=== PATIENT | male | born 1965 | race Caucasian/White ===

== ENCOUNTER 2019-04-11 11:22 | Inpatient (IN) ==
--- NOTE | 2019-04-11 11:49 | PDOC ---
Dyspnea HPI - General Chief Complaint: Dyspnea Stated Complaint: SHORT OF BREATH Date Seen by Provider: 04/11/19 Time Seen by Provider: 11:44 Source: POSITIVE: Patient, EMS Exam Limitations: POSITIVE: No limitations Treatment Prior to Arrival: REPORTS: Albuterol Neb Treatment Nurse's Notes Reviewed & Considered: Yes - History of Present Illness Initial Comments: This is a well-developed, well-nourished, 54-year-old male with known ALL who presents today with shortness of breath. Patient was directed here from his doctor's office because of coarse rhonchi and shortness of breath. Patient has had headaches, sore throat, fever chills and sweats, cough, shortness of breath with chest pain, denies nausea vomiting, has chronic diarrhea, denies hematuria or dysuria, he does have myalgias. Body Location Affected: REPORTS: Chest Timing: REPORTS: Unknown Duration: Unknown Severity: Moderate Context: REPORTS: Activity Exacerbated By: REPORTS: Exertion, Coughing Associated Symptoms: REPORTS: Fever, Chills, Sweating, Chest Heaviness, Productive Cough Similar Symptoms Previously: Yes Recently seen/treated/hospitalized: Yes Any Prior Injuries Related to Current Complaint?: No - Patient Home Medications Home Medications: Home Medications aspirin 81 mg tablet,delayed release 81 mg PO QDAY #30 tab 10/27/18 albuterol sulfate HFA 90 mcg/actuation aerosol inhaler 2 puff INH Q4-6H PRN #18 g 02/09/19 amlodipine 10 mg tablet 10 mg PO QDAY #90 tab 02/09/19 carvedilol 12.5 mg tablet 12.5 mg PO BID #180 tab 02/09/19 dasatinib 20 mg tablet 20 mg PO QDAY tab 02/09/19 lisinopril 5 mg tablet 5 mg PO QDAY #90 tab 02/09/19 ondansetron 4 mg disintegrating tablet 4 mg PO Q12H #30 tab 02/09/19 fluoxetine 20 mg capsule 60 mg PO QDAY cap 02/28/19 simvastatin 10 mg tablet 10 mg PO QHS tab 02/28/19 tamsulosin 0.4 mg capsule 0.4 mg PO QHS cap 02/28/19 cholecalciferol (vitamin D3) 1,000 unit capsule 1,000 unit PO QDAY #30 cap 03/16/19 vitamin B complex tablet 1 tab PO QDAY #30 tab 03/16/19 ipratropium-albuterol 0.5 mg-3 mg(2.5 mg base)/3 mL nebulization soln 3 ml INH Q6-8H PRN #180 ml 03/19/19 tiotropium bromide 2.5 mcg/actuation mist for inhalation 2 puff INH QDAY #4 g 03/20/19 sucralfate 1 gram tablet 1 g PO BID #180 tab 04/09/19 RX: Guaifenesin 400 mg PO BID 04/11/19 - Patient Allergies Allergies/Adverse Reactions: Allergies Allergy/AdvReac Type Severity Reaction Status Date / Time No Known Allergies Allergy Verified 04/11/19 11:51 Past Medical History - heen HEENT History: Denies History Cardiovascular History: Hypertension, CAD, Pacemaker, Internal Defibrillator Respiratory History: COPD, Shortness of Breath, Other (please comment) Additional Respiratory History: hypoxia Gastrointestinal History: GERD Additional Gastrointestinal History: GI BLEED Genitourinary History: Denies History Endocrine History: Denies History Musculoskeletal History: Denies History Prosthesis or Implant: Yes (Shunt in head/pacemaker) Neurological History: Other (please comment) Additional Neurological History: SHUNT IN HIS HEAD. Restless leg syndrome Blood Disorders: Anemia, Other (please comment) Additional Blood Disorders History: LEUKEMIA Psychiatric History: Anxiety Disorders History of Sexually Transmitted Diseases: No Cancer History: Leukemia History of MDRO: No History of Other Communicable Diseases: No In the Past 12 Months, Have Used or Abuse Any Substance: None Previous Surgical History: Yes Type / Date of Surgery: APPY,PACEMAKER/DEFEBRILLATOR/SHUNT IN HEAD with port placement Anesthesia Reactions: No Malignant Hyperthermia: No Significant Family History: No pertinent family hx ROS - Limitations ROS Limitations: No Limitations Constitution: REPORTS: Chills, Fever, Diaphoresis Cardiovascular: REPORTS: Chest Pain Respiratory: REPORTS: Cough Productive, Hurts To Breathe, Shortness Of Breath, Wheezing Neurological: REPORTS: Headache Gastrointestinal: REPORTS: Diarrhea (Chronic) Endocrine: REPORTS: Denies Symptoms Musculoskeletal: REPORTS: Muscle Aches Genitourinary: REPORTS: Denies Symptoms Eyes: REPORTS: Denies Symptoms ENT: REPORTS: Sore Throat Skin: REPORTS: Denies Skin Symptoms Lympathic: REPORTS: Denies Lympathic Symptoms Immunologic: POSITIVE: Denies Symptoms Psychiatric: POSITIVE: Anxiety Dyspnea Physical Exam - General Appearance General Appearance: REPORTS: Alert, Cooperative, No Evidence of Trauma, Moderate Distress - HEENT HEENT: POSITIVE: Head Inspection Nml, Eyes Inspection Nml, Ears Inspection Nml, Nose Inspection Nml, Oral/Dental Inspect. Nml, Pharynx Inspect. Nml, PERRL, EOMI - Neck Neck: REPORTS: Normal Inspection - Respiratory Respiratory: REPORTS: No Pleuritic Chest Pain, Speaks Full Sentences, No Pain on Inspiration, Respiratory Distress, Rhonchi, Prolonged Expirations, Decreased Air Movement - Cardiovascular Cardiovascular: REPORTS: Regular Rate and Rhythm, Heart Sounds Normal, Strong Pulses, No Murmur, No Gallop, No Friction Rub, No JVD Peripheral Pulses: Radial (L): 4+ - Abdomen Abdomen: Soft: (All Quadrants), Normal Bowel Sounds: (All Quadrants), Denies Tenderness: (All Quadrants), No Splenomegaly: (All Quadrants), No Hepatomegaly: (All Quadrants), No Guarding: (All Quadrants), No Rebound: (All Quadrants), No Palpable Pulse: (All Quadrants), No Palpabale Mass: (All Quadrants), No Distention: (All Quadrants), No Rigidity: (All Quadrants) - Skin Skin: REPORTS: Intact, Normal For Race, Warm, Dry, No Rash - Extremities Extremity: Non-Tender: (All Extremities), Normal ROM: (All Extremities), Normal Inspection: (All Extremities), Pelvis Stable: (All Extremities) - Neurological / Psychological Neurological: POSITIVE: Affect Apporpriate, Oriented X3, Motor Normal, Sensation Normal Dyspnea Progress - Results Reviewed by me Xrays/CTs/US Reviewed by me: Yes Discussed with Radiologist: Yes Lab Results Reviewed by Me: Yes CBC and BMP: 04/11/19 11:20 04/11/19 11:20 Lab Results:: Laboratory Results 04/11/19 04/11/19 04/11/19 11:20 11:20 11:20 WBC 9.86 RBC 2.98 L Hgb 9.8 L Hct 29.1 L MCV 97.7 H MCH 32.9 H MCHC 33.7 RDW Std Deviation 63.8 H RDW Coeff of Susanne 18.6 H Plt Count 136 L MPV 8.5 Immature Gran % (Auto) 0.4 Neut % (Auto) 34.6 L Lymph % (Auto) 63.6 H Martin % (Auto) 0.5 L Eos % (Auto) 0.8 Baso % (Auto) 0.1 Immature Gran # (Auto) 0.04 Neut # (Auto) 3.41 Lymph # (Auto) 6.27 Martin # (Auto) 0.05 L Eos # (Auto) 0.08 Baso # (Auto) 0.01 WBC Morphology Comment Normal morphology Plt Morphology Comment Normal morphology RBC Morph Comment See comments ESR 58 H PT 12.4 INR 1.08 D-Dimer 567 H VBG pH VBG pCO2 VBG HCO3 VBG Base Excess Sodium 139 Potassium 3.7 L Chloride 107 Carbon Dioxide 16 L Anion Gap 16 BUN 15 Creatinine 1.1 Estimated GFR > 60 BUN/Creatinine Ratio 13.63 Glucose 91 Calculated Osmolality 288.0 Lactic Acid Calcium 8.3 L Magnesium 2.0 Total Bilirubin 0.3 AST 29 ALT 28 Alkaline Phosphatase 75 CK-MB (CK-2) Troponin I Handheld C-Reactive Protein 7.6 H NT-Pro-B Natriuret Pep 1220 H Total Protein 6.9 Albumin 4.0 Globulin 2.9 Albumin/Globulin Ratio 1.30 TSH Group A Strep Screen 04/11/19 04/11/19 04/11/19 11:20 11:20 11:20 WBC RBC Hgb Hct MCV MCH MCHC RDW Std Deviation RDW Coeff of Susanne Plt Count MPV Immature Gran % (Auto) Neut % (Auto) Lymph % (Auto) Martin % (Auto) Eos % (Auto) Baso % (Auto) Immature Gran # (Auto) Neut # (Auto) Lymph # (Auto) Martin # (Auto) Eos # (Auto) Baso # (Auto) WBC Morphology Comment Plt Morphology Comment RBC Morph Comment ESR PT INR D-Dimer VBG pH VBG pCO2 VBG HCO3 VBG Base Excess Sodium Potassium Chloride Carbon Dioxide Anion Gap BUN Creatinine Estimated GFR BUN/Creatinine Ratio Glucose Calculated Osmolality Lactic Acid 0.7 Calcium Magnesium Total Bilirubin AST ALT Alkaline Phosphatase CK-MB (CK-2) 1.05 Troponin I Handheld 0.020 C-Reactive Protein NT-Pro-B Natriuret Pep Total Protein Albumin Globulin Albumin/Globulin Ratio TSH 3.37 Group A Strep Screen 04/11/19 04/11/19 11:41 12:15 WBC RBC Hgb Hct MCV MCH MCHC RDW Std Deviation RDW Coeff of Susanne Plt Count MPV Immature Gran % (Auto) Neut % (Auto) Lymph % (Auto) Martin % (Auto) Eos % (Auto) Baso % (Auto) Immature Gran # (Auto) Neut # (Auto) Lymph # (Auto) Martin # (Auto) Eos # (Auto) Baso # (Auto) WBC Morphology Comment Plt Morphology Comment RBC Morph Comment ESR PT INR D-Dimer VBG pH 7.44 H VBG pCO2 24 L VBG HCO3 16 L VBG Base Excess -8 L Sodium Potassium Chloride Carbon Dioxide Anion Gap BUN Creatinine Estimated GFR BUN/Creatinine Ratio Glucose Calculated Osmolality Lactic Acid Calcium Magnesium Total Bilirubin AST ALT Alkaline Phosphatase CK-MB (CK-2) Troponin I Handheld C-Reactive Protein NT-Pro-B Natriuret Pep Total Protein Albumin Globulin Albumin/Globulin Ratio TSH Group A Strep Screen Negative - Patient's Progress Status: POSITIVE: Unchanged MDM / ED Course: Patient was evaluated, an IV started, blood drawn and sent to the lab for studies, CT examination of his chest was obtained. Findings: CT scan of his chest shows no pulmonary embolism present, multifocal airspace disease is noted with left worse than the right, there is cardiomegaly, there is bronchitis, and there is evidence of pulmonary arterial hypertension. CBC shows white count is normal with a hemoglobin of 9.8 hematocrit of 29.1, platelets 136, neutrophils are 34.6% lymphocytes are 63.6% and monocytes are 0.5%. ESR is 58. Coags show PT of 12.4 and INR 1.08. D-dimer is elevated at 567. CMP shows a potassium of 3.7, CO2 of 16, calcium of 8.3, the remainder the panel was normal. Magnesium is normal at 2.0. Lactic acid is normal at 0.7. Blood gases show pH is 7.44, PCO2 of 24, bicarbonate 16, base excess is -8. CK- MB is 1.05 and troponin 0.020. CRP is elevated at 7.6. BNP is elevated at 1220. TSH is normal at 3.37. Strep swab is negative. By fire respiratory panel is positive for Rhino and enterovirus, positive for H influenza, and positive for parainfluenza. Assessment: #1 hypoxia. #2 pneumonia. #3 multiple viral infections. Plan: Patient receives IV cefepime and vancomycin and is admitted to the hospitalist program. Air Movement: POSITIVE: Poor Quality Measure Initiative: CAP: POSITIVE: Antibiotic(s), CXR or CT - Consult Consult (If Yes, Name of Consulting MD & Time Called): Yes (Dr. Brandon) Consulting MD will see pt:: POSITIVE: [facility] [place] Admit Counseled: POSITIVE: Patient, Family, RE: Lab Results, RE: Radiology Results, RE: DX, RE: Need for F/U Patient Care Time - Estimated PCT Patient Care Time (In Minutes): 45 Vital Signs - Recent Vital Signs Vital Signs: Vital Signs (Last 8 hours) Pulse Resp BP Pulse Ox 04/11/19 15:59 71 20 101/81 92 - VS Reviewed Vital Signs Reviewed: Yes Discharge Clinical Impression: Pneumonia Discharge Disposition: Admit to Inpatient Condition: Fair Date Decision to Admit to Inpatient: 04/11/19 Time Decision to Admit to Inpatient: 15:09
[2019-04-11] MEDS ORDERED: ONDANSETRON 4 MG/2 ML VIAL IVP ONE (11:52)
[2019-04-11] MEDS ORDERED: Sodium Chloride 0.9% 1,000 ML PRIMARY IV ONE (11:52)
[2019-04-11] MEDS ORDERED: KETOROLAC 15 MG/1 ML VIAL IVP ONE (11:52)
[2019-04-11] MEDS ORDERED: LORazepam 2 MG/1 ML VIAL IVP ONE (11:53)
[2019-04-11 11:59] LABS: BASOPHILS # (AUTO) 0.01 10*3/UL; BASOPHILS % (AUTO) 0.1 % (0-1); EOSINOPHILS # (AUTO) 0.08 10*3/UL; EOSINOPHILS % (AUTO) 0.8 % (0-8); Hematocrit [HCT] 29.1 % (42.0-52.0); Hemoglobin [HGB] 9.8 g/dL (14.0-18.0); LYMPHOCYTES # (AUTO) 6.27 10*3/uL; MEAN CORPUSCULAR HEMOGLOBIN 32.9 PG (27-31); MEAN CORPUSCULAR HGB CONC 33.7 g/dL (33-37); MEAN CORPUSCULAR VOLUME 97.7 FL (80-90); MEAN PLATELET VOLUME 8.5 FL (7.4-12.2); MONOCYTES # (AUTO) 0.05 10*3/UL (0.3-0.8); MONOCYTES % (AUTO) 0.5 % (5-15); NEUTROPHILS # (AUTO) 3.41 10*3/UL; NEUTROPHILS % (AUTO) 34.6 % (50-80); RED BLOOD COUNT 2.98 10^6/uL (4.70-6.10)
[2019-04-11] MEDS ORDERED: IPRATROPIUM/ALBUTEROL SULFATE 3 ML NEB NEB ONE ×2 (12:01→12:02)
[2019-04-11 12:09] LABS: PLATELET MORPHOLOGY COMMENT NORMAL MORPHOLOGY (NORM); RBC MORPHOLOGY COMMENT SEE COMMENTS (NORM); WBC MORPHOLOGY COMMENT NORMAL MORPHOLOGY (NORM)
[2019-04-11 12:10] LABS: BLOOD UREA NITROGEN 15 mg/dL (7-22); BUN/CREATININE RATIO 13.63 (6-20)
[2019-04-11 12:46] LABS: Erythrocyte Sediment Rate 58 MM/HR (0-15)
[2019-04-11 13:49] LABS: VENOUS PH 7.44 (7.32-7.42)
--- NOTE | 2019-04-11 14:48 | DI ---
CT CTA Chest Non-Coronary WWO 04/11/2019 12:59 PM History: [facility] [place] DI ^sob Comparison: Chest x-ray from earlier the same day. CTA PE 09/30/2018, 09/14/2018. Procedure: CT angiography of the pulmonary arteries was performed after the administration of 64 mL o f Ultravist 370 intravenous contrast. Findings: There is a right chest Port-A-Cath with the tip in the distal SVC. There is a 2-lead left c hest cardiac device with wire tips in the right atrium and right ventricle. There is normal opacification of the main and proximal segmental pulmonary arteries with no evidence of filling defect. Contrast bolus timing is suboptimal for the visualization of more distal emboli. E valuation of the lungs demonstrates early consolidation in the left lower lobe. Tree in bud opacities are noted in the left upper, lingular, and left lower lobes. There is mild diffuse bronchial wall th ickening. There is no mediastinal or hilar lymphadenopathy. The aorta and branch vessels demonstrate normal cou rse and caliber. The main pulmonary artery is dilated at 3.3 cm. Heart size is enlarged with mild per icardial effusion. There are atheromatous aortic and coronary artery calcifications. The thyroid exhi bits normal CT morphology. The visualized upper abdominal structures are unremarkable. The osseous structures are not significantly changed. There is no evidence of acute or healing rib fr actures. There is moderate bilateral gynecomastia. Impression: 1. No main or proximal segmental pulmonary embolism. Contrast bolus timing is suboptimal for the eval uation of more distal emboli. 2. Multifocal airspace disease. Repeat imaging is recommended 6 weeks following completion of therapy in order to ensure resolution. 3. Cardiomegaly with mild pericardial effusion. 4. There is diffuse bronchial wall thickening without endobronchial lesion. This is a non-specific fi nding that is most commonly seen in the setting of acute or chronic bronchitis, as well as reactive a irways disease. 5. The main pulmonary artery is dilated, a finding associated with pulmonary artery hypertension.
[2019-04-11] MEDS ORDERED: LIDOCAINE 1% IM ONE (15:06)
[2019-04-11] MEDS ORDERED: CEFTRIAXONE IM ONE (15:06)
[2019-04-11] MEDS ORDERED: cefTRIAXone Inj 2 GM in Sodium Chloride 0.9% 100 ML IV ONE (15:29)
[2019-04-11] MEDS ORDERED: Cefepime Inj 2 GM in Sodium Chloride 0.9% 100 ML IV ONE (15:34)
[2019-04-11] MEDS ORDERED: LISINOPRIL 5 MG TABLET PO SCH (16:44)
[2019-04-11] MEDS ORDERED: ASPIRIN EC 81 MG TABLET PO SCH (16:44)
[2019-04-11] MEDS ORDERED: Vancomycin-PHA to Dose IV PRN (16:44)
[2019-04-11] MEDS ORDERED: LIDOCAINE W/ SODIUM BICARB 0.5 ML SYR SUBD PRN (16:44)
[2019-04-11] MEDS ORDERED: ONDANSETRON 4 MG/2 ML VIAL IV PRN (16:44)
[2019-04-11] MEDS ORDERED: FLUoxetine 20 MG CAPSULE PO SCH (17:00)
[2019-04-11] MEDS: FLUoxetine 20 MG CAPSULE PO SCH (18:53)
[2019-04-11] MEDS: Sucralfate Tab 1 GM TAB PO SCH (18:54)
[2019-04-11] MEDS: Simvastatin Tab 10 MG TAB PO SCH (18:54)
[2019-04-11] MEDS: CARVEDILOL 12.5 MG TABLET PO SCH (18:54)
[2019-04-11] MEDS: GUAIFENESIN 600 MG TABLET PO SCH (18:54)
--- NOTE | 2019-04-11 19:10 | PDOC ---
HPI - History of Present Illness Date of Service: 04/11/19 Time of Service: 17:00 Chief Complaint: Cough and shortness of breath History of Present Illness: This is a very pleasant 54-year-old male with ALL with recurrence on active chemotherapy who reported along with his [id number], that he had a cough and shortness of breath for the last 3 days. He had fevers as high as 100 over the last couple days. He's been using Mucinex, decongestants and breathing therapies to try and make his symptoms better. He saw his primary physician and his oncologist today and at their urging he came to the emergency room for further evaluation. He apparently had a chest x-ray that may have revealed pneumonia on the outpatient side. In the emergency room, the patient had a CT scan of the chest was negative for pulmonary emboli resulted in the findings of a left lower lobe pneumonia. He had a respiratory biofire profile that noted three different viruses. He states to me that he's had cough with sputum production as well. He is normally not on oxygen but required 3 L of oxygen to maintain his saturations Past Medical History Medical History: 1. ALL. 2. GERD. 3. HTN. 4. reportedly, COPD. 5. Restless leg syndrome. 6. atrial fibrillation Surgical History: 1. Right upper chest port. 2. Status post appendectomy. 3. Pacemaker with AICD per the patient Pertinent Family History: He states his mother gets "blackout spells" Past Social History: , has children that are healthy. Does not smoke tobacco or drink alcohol at this time. Tobacco Use: Never Smoker In the Past 12 Months, Have Used or Abuse Any of the Following Substance: None Alcohol Use: None Medication / Allergies Home Medications: Home Medications Medication Instructions Recorded Confirmed aspirin 81 mg tablet,delayed 81 mg PO QDAY #30 tab 10/27/18 04/11/19 release albuterol sulfate HFA 90 2 puff INH Q4-6H PRN #18 g 02/09/19 04/11/19 mcg/actuation aerosol inhaler amlodipine 10 mg tablet 10 mg PO QDAY #90 tab 02/09/19 04/11/19 carvedilol 12.5 mg tablet 12.5 mg PO BID #180 tab 02/09/19 04/11/19 dasatinib 20 mg tablet 20 mg PO QDAY tab 02/09/19 04/11/19 lisinopril 5 mg tablet 5 mg PO QDAY #90 tab 02/09/19 04/11/19 ondansetron 4 mg disintegrating 4 mg PO Q12H #30 tab 02/09/19 04/11/19 tablet fluoxetine 20 mg capsule 60 mg PO QDAY cap 02/28/19 04/11/19 simvastatin 10 mg tablet 10 mg PO QHS tab 02/28/19 04/11/19 tamsulosin 0.4 mg capsule 0.4 mg PO QHS cap 02/28/19 04/11/19 cholecalciferol (vitamin D3) 1,000 1,000 unit PO QDAY #30 cap 03/16/19 04/11/19 unit capsule vitamin B complex tablet 1 tab PO QDAY #30 tab 03/16/19 04/11/19 ipratropium-albuterol 0.5 mg-3 3 ml INH Q6-8H PRN #180 ml 03/19/19 04/11/19 mg(2.5 mg base)/3 mL nebulization soln tiotropium bromide 2.5 2 puff INH QDAY #4 g 03/20/19 04/11/19 mcg/actuation mist for inhalation sucralfate 1 gram tablet 1 g PO BID #180 tab 04/09/19 04/11/19 Guaifenesin 400 mg PO BID 04/11/19 04/11/19 Allergies/Adverse Reactions: Allergies Allergy/AdvReac Type Severity Reaction Status Date / Time No Known Allergies Allergy Verified 04/11/19 11:51 Review of Systems - Review of Systems All Systems: Reviewed & No Additional Complaints Except as Stated (I did a 12 point review systems and it was negative other than that discussed below and in the history of present illness.) - Constitutional Constitutional: REPORTS: General Health Poor, Fever / Chills - Respiratory Respiratory: REPORTS: Cough, Sputum - Neurological Neurologic: REPORTS: Headache Exam - Vitals Vital Signs: Vital Signs Temperature 98.9 F Temperature Source Temporal Artery Scan Pulse Rate [Pulse Oximeter 133 Right] Pulse Rate 68 Respiratory Rate 24 Blood Pressure [Right Arm] 102/57 Blood Pressure [Left Arm] 101/81 Blood Pressure 103/51 Pulse Ox 92 Oxygen Flow Rate 2.5 Oxygen Delivery Method Nasal Cannula Height 5 ft 8 in Weight 216 lb 12.8 oz - General General Appearance: No Acute Distress, Cooperative - Head Head Exam: Normal Inspection, Normocephalic, Atraumatic - Eye Eye Exam: POSITIVE: No Scleral Icterus - ENT ENT Exam: POSITIVE: Mucous Membranes Moist - Neck Neck Exam: Normal Inspection, No Tenderness, No Lymphadenopathy, No Thyromegaly, JVP is not Raised - Respiratory Respiratory Exam: POSITIVE: Breathing Non Labored, Decreased Breath Sounds (In the bases bilaterally), Coarse Breath Sounds - Cardiovascular Cardiovascular Exam: POSITIVE: RRR, No Murmur, No Clicks, No Gallops, No Rubs, No JVD - GI/Abdominal GI/Abdominal Exam: POSITIVE: Normal Bowel Sounds, Non Tender, Non Distended, Soft - Rectal Rectal Exam: POSITIVE: Deferred - External Exam: POSITIVE: Deferred Exam: POSITIVE: Deferred - Extremities Extremities Exam: POSITIVE: No Clubbing Present, No Edema Present, No Cyanosis Present - Back Back Exam: POSITIVE: No CVA Tenderness - Neurological Neurological Exam: POSITIVE: Alert, Oriented x 3, No Facial Droop, Speech Intact / Clear, Moves All Extremities Equally - Psychiatric Psychiatric Exam: POSITIVE: Anxious - Central Line Examination Central Line Present on Admission: Yes Central Line Type: Med-Port Central Line Location: Subclavian (L) Central Line Site Observations: POSITIVE: Asymptomatic Results - Labs CBC and BMP: 04/11/19 11:20 04/11/19 11:20 Additional Lab Results: Laboratory Results 04/11/19 04/11/19 04/11/19 11:20 11:20 11:20 WBC 9.86 RBC 2.98 L Hgb 9.8 L Hct 29.1 L MCV 97.7 H MCH 32.9 H MCHC 33.7 RDW Std Deviation 63.8 H RDW Coeff of Susanne 18.6 H Plt Count 136 L MPV 8.5 Immature Gran % (Auto) 0.4 Neut % (Auto) 34.6 L Lymph % (Auto) 63.6 H Wells % (Auto) 0.5 L Eos % (Auto) 0.8 Baso % (Auto) 0.1 Immature Gran # (Auto) 0.04 Neut # (Auto) 3.41 Lymph # (Auto) 6.27 Wells # (Auto) 0.05 L Eos # (Auto) 0.08 Baso # (Auto) 0.01 WBC Morphology Comment Normal morphology Plt Morphology Comment Normal morphology RBC Morph Comment See comments ESR 58 H PT 12.4 INR 1.08 D-Dimer 567 H VBG pH VBG pCO2 VBG HCO3 VBG Base Excess Sodium 139 Potassium 3.7 L Chloride 107 Carbon Dioxide 16 L Anion Gap 16 BUN 15 Creatinine 1.1 Estimated GFR > 60 BUN/Creatinine Ratio 13.63 Glucose 91 Calculated Osmolality 288.0 Lactic Acid Calcium 8.3 L Magnesium 2.0 Total Bilirubin 0.3 AST 29 ALT 28 Alkaline Phosphatase 75 CK-MB (CK-2) Troponin I Handheld C-Reactive Protein 7.6 H NT-Pro-B Natriuret Pep 1220 H Total Protein 6.9 Albumin 4.0 Globulin 2.9 Albumin/Globulin Ratio 1.30 TSH Group A Strep Screen 04/11/19 04/11/19 04/11/19 11:20 11:20 11:20 WBC RBC Hgb Hct MCV MCH MCHC RDW Std Deviation RDW Coeff of Susanne Plt Count MPV Immature Gran % (Auto) Neut % (Auto) Lymph % (Auto) Wells % (Auto) Eos % (Auto) Baso % (Auto) Immature Gran # (Auto) Neut # (Auto) Lymph # (Auto) Wells # (Auto) Eos # (Auto) Baso # (Auto) WBC Morphology Comment Plt Morphology Comment RBC Morph Comment ESR PT INR D-Dimer VBG pH VBG pCO2 VBG HCO3 VBG Base Excess Sodium Potassium Chloride Carbon Dioxide Anion Gap BUN Creatinine Estimated GFR BUN/Creatinine Ratio Glucose Calculated Osmolality Lactic Acid 0.7 Calcium Magnesium Total Bilirubin AST ALT Alkaline Phosphatase CK-MB (CK-2) 1.05 Troponin I Handheld 0.020 C-Reactive Protein NT-Pro-B Natriuret Pep Total Protein Albumin Globulin Albumin/Globulin Ratio TSH 3.37 Group A Strep Screen 04/11/19 04/11/19 04/11/19 11:41 12:15 17:35 WBC RBC Hgb Hct MCV MCH MCHC RDW Std Deviation RDW Coeff of Susanne Plt Count MPV Immature Gran % (Auto) Neut % (Auto) Lymph % (Auto) Wells % (Auto) Eos % (Auto) Baso % (Auto) Immature Gran # (Auto) Neut # (Auto) Lymph # (Auto) Wells # (Auto) Eos # (Auto) Baso # (Auto) WBC Morphology Comment Plt Morphology Comment RBC Morph Comment ESR PT INR D-Dimer VBG pH 7.44 H VBG pCO2 24 L VBG HCO3 16 L VBG Base Excess -8 L Sodium Potassium Chloride Carbon Dioxide Anion Gap BUN Creatinine Estimated GFR BUN/Creatinine Ratio Glucose Calculated Osmolality Lactic Acid 0.8 Calcium Magnesium Total Bilirubin AST ALT Alkaline Phosphatase CK-MB (CK-2) Troponin I Handheld C-Reactive Protein NT-Pro-B Natriuret Pep Total Protein Albumin Globulin Albumin/Globulin Ratio TSH Group A Strep Screen Negative - Imaging Status: Image Reviewed by Me (I looked at the CT scan of the chest and I felt it was significant for left lower lobe pneumonia. 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 Active/Remission status: without remission Qualified Code(s): C91.00 - Acute lymphoblastic leukemia not having achieved remission (3) Atrial fibrillation Current Visit: Yes Status: Acute Code(s): I48.91 - Unspecified atrial fibrillation Qualifiers: Atrial fibrillation type: unspecified Qualified Code(s): I48.91 - Unspecified atrial fibrillation (4) Pacemaker Current Visit: Yes Status: Chronic Code(s): Z95.0 - Presence of cardiac pacemaker (5) Restless legs syndrome Current Visit: No Status: Chronic Code(s): G25.81 - Restless legs syndrome (6) Gastroesophageal reflux disease Current Visit: Yes Status: Chronic Code(s): K21.9 - Gastro-esophageal reflux disease without esophagitis Qualifiers: Esophagitis presence: esophagitis presence not specified Qualified Code(s): K21.9 - Gastro-esophageal reflux disease without esophagitis - Assessment / Plan Additional Assessment/Plan Details: Admit patient. Antibiotics will be given IV cefepime and vancomycin as I think this is patient admitting representative of a healthcare associated pneumonia given his immunocompromised status and active chemotherapy I will write for some breathing therapies including nebulized therapies if necessary. Oxygen as necessary to keep saturations greater than 91%. Respiratory therapy to evaluate. Vitamin C by mouth. We'll check a urinary antigen for strep pneumoniae. vaccine status reviewed has not had Pneumovax, but I think the timing of it may not be best considering his active chemotherapy status. In addition I'd like him to recover from this pneumonia so that if he does have the vaccine he can have the maximum response to it. PSI score is 96 . Class IV pneumonia CURB-65 is 0 smoking status negative, Repeat labs in a.m. Blood cultures are pending. Telemetry monitoring for now. We need to watch the patient on broad-spectrum antibiotics in my mind for at l east the next 24-48 hours and we can de-escalate depending on the patient's clinical response and a workup done above. I will also hold chemotherapy agent for now. Adverse reaction of his chemotherapy agent, dasatinib, can cause pneumonias. I will try to talk to his oncologist tomorrow regarding this possibility. Plan above discussed with patient and patient agreed
[2019-04-11] MEDS ORDERED: POTASSIUM CHLORIDE 20 MEQ TAB PO ONE (19:14)
[2019-04-11] MEDS: Zolpidem Tab 5 MG TAB PO PRN (20:37)
[2019-04-11] MEDS ORDERED: TAMSULOSIN 0.4 MG CAPSULE PO SCH (21:00)
[2019-04-11] MEDS ORDERED: Simvastatin Tab 10 MG TAB PO SCH (21:00)
[2019-04-11] MEDS ORDERED: Sucralfate Tab 1 GM TAB PO SCH (21:00)
[2019-04-11] MEDS ORDERED: CARVEDILOL 12.5 MG TABLET PO SCH (21:00)
[2019-04-11] MEDS ORDERED: GUAIFENESIN 600 MG TABLET PO SCH (21:00)
[2019-04-11] MEDS: Sodium Chloride 0.9% 1,000 ML PRIMARY IV SCH (23:40)
[2019-04-11] MEDS: Cefepime Inj 2 GM in Sodium Chloride 0.9% 100 ML IV SCH (23:40)
[2019-04-12 04:48] LABS: BASOPHILS # (AUTO) 0 10*3/UL; BASOPHILS % (AUTO) 0 % (0-1); EOSINOPHILS # (AUTO) 0.02 10*3/UL; EOSINOPHILS % (AUTO) 0.6 % (0-8); Hematocrit [HCT] 25.2 % (42.0-52.0); LYMPHOCYTES # (AUTO) 1.57 10*3/uL; MEAN CORPUSCULAR HEMOGLOBIN 31.7 PG (27-31); MEAN CORPUSCULAR HGB CONC 31.7 g/dL (33-37); MEAN PLATELET VOLUME 7.9 FL (7.4-12.2); MONOCYTES # (AUTO) 0.03 10*3/UL (0.3-0.8); MONOCYTES % (AUTO) 0.9 % (5-15); NEUTROPHILS # (AUTO) 1.87 10*3/UL; NEUTROPHILS % (AUTO) 53.5 % (50-80); RED BLOOD COUNT 2.52 10^6/uL (4.70-6.10)
[2019-04-12 04:51] LABS: PLATELET MORPHOLOGY COMMENT NORMAL MORPHOLOGY (NORM); RBC MORPHOLOGY COMMENT NORMAL MORPHOLOGY (NORM); WBC MORPHOLOGY COMMENT NORMAL MORPHOLOGY (NORM)
[2019-04-12 04:57] LABS: BLOOD UREA NITROGEN 16 mg/dL (7-22); BUN/CREATININE RATIO 14.54 (6-20)
[2019-04-12] MEDS: ALBUTEROL SULFATE 2.5 MG/3 ML NEB PRN (06:34)
[2019-04-12] MEDS: TIOTROPIUM BROMIDE 18 MCG CAPSULE INH SCH (06:35)
[2019-04-12] MEDS: CHOLECALCIFEROL 1000 IU TABLET PO SCH (06:55)
[2019-04-12] MEDS ORDERED: TIOTROPIUM BROMIDE 18 MCG CAPSULE INH SCH (07:00)
[2019-04-12] MEDS: Sucralfate Tab 1 GM TAB PO SCH ×2 (07:29→19:27)
[2019-04-12] MEDS: TAMSULOSIN 0.4 MG CAPSULE PO SCH (07:29)
[2019-04-12] MEDS: LISINOPRIL 5 MG TABLET PO SCH (07:30)
[2019-04-12] MEDS: CARVEDILOL 12.5 MG TABLET PO SCH ×2 (07:30→19:27)
[2019-04-12] MEDS: GUAIFENESIN 600 MG TABLET PO SCH ×2 (07:30→19:27)
[2019-04-12] MEDS: Sodium Chloride 0.9% 1,000 ML PRIMARY IV SCH (07:48)
[2019-04-12] MEDS: ASPIRIN EC 81 MG TABLET PO SCH (07:50)
--- NOTE | 2019-04-12 08:29 | EKG ---
[address] [address] [address] [place] Rate: 73 P: 69 DC: 158 QRS: 17 QRSD: 100 T: 17 QT: 413 QTc: 439 Interpretive Statements SINUS RHYTHM WITH WANDERING BASELINE AND ELECTRICAL INTERFERENCE Compared to ECG 10/17/2018 17:52:03 T-wave abnormality no longer present Electronically Signed On 04-12-19 10:09:04 MDT by Dung Murphy [id number]
[2019-04-12] MEDS ORDERED: CHOLECALCIFEROL 1000 IU TABLET PO SCH (09:00)
[2019-04-12] MEDS: Cefepime Inj 2 GM in Sodium Chloride 0.9% 100 ML IV SCH ×3 (09:06→23:24)
[2019-04-12] MEDS: ENOXAPARIN SODIUM 40 MG/0.4 ML SYRINGE SUBCUT SCH (09:06)
[2019-04-12] MEDS ORDERED: POTASSIUM CHLORIDE 20 MEQ TAB PO ONE (10:07)
[2019-04-12] MEDS ORDERED: Sodium Chloride 0.9% 500 ML PRIMARY IV ONE (10:10)
[2019-04-12] MEDS ORDERED: ACETAMINOPHEN 325 MG TABLET PO ONE (10:10)
--- NOTE | 2019-04-12 11:15 | PDOC(PROG) ---
Date of Service: 04/12/19 Time of Service: 11:10 Interval History: No chest pain, shortness breath, nausea or vomiting. Reports cough is improved. Feels much better. Objective : Data - Labs CBC and BMP: 04/12/19 04:32 04/12/19 04:32 Objective : Exam - General General Appearance: No Acute Distress, Cooperative Additional General Exam Details: Vital Signs - Last Taken Temperature 98.4 F 04/12/19 07:28 Pulse Rate 88 04/12/19 07:28 Respiratory Rate 18 04/12/19 07:28 Blood Pressure 121/65 04/12/19 07:28 Pulse Ox 95 04/12/19 07:28 Currently on oxygen therapy. Selected Entries 04/12/19 07:00 Oxygen Delivery Method [Left middle finger] Nasal Cannula Oxygen Flow Rate [Left middle finger] 3 - Eye Eye Exam: No Scleral Icterus - ENT ENT Exam: Mucous Membranes Moist - Neck Neck Exam: JVP is not Raised - Respiratory Respiratory Exam: Breathing Non Labored, Crackles (Left base) - Cardiovascular Cardiovascular Exam: RRR, No Murmur, No Clicks, No Gallops, No Rubs, No JVD - GI/Abdominal GI/Abdominal Exam: Normal Bowel Sounds, Non Tender, Non Distended, Soft - Extremities Extremities Exam: No Clubbing Present, No Edema Present, No Cyanosis Present - Neurological Neurological Exam: Alert, Oriented x 3, No Facial Droop, Speech Intact / Clear, Moves All Extremities Equally - Central Line Examination Central Line Type: Med-Port Central Line Location: Subclavian (R) Central Line Site Observations: Asymptomatic Assessment and Plan - Patient Problems (1) Pneumonia Current Visit: Yes Status: Acute Code(s): J18.9 - Pneumonia, unspecified organism (2) Leukemia Current Visit: Yes Status: Acute Code(s): C95.90 - Leukemia, unspecified not having achieved remission Qualifiers: 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 Active/Remission status: without remission Qualified Code(s): C91.00 - Acute lymphoblastic leukemia not having achieved remission (3) Atrial fibrillation Current Visit: Yes Status: Acute Code(s): I48.91 - Unspecified atrial fibrillation Qualifiers: Atrial fibrillation type: unspecified Qualified Code(s): I48.91 - Unspecified atrial fibrillation (4) Pacemaker Current Visit: Yes Status: Chronic Code(s): Z95.0 - Presence of cardiac pacemaker (5) Restless legs syndrome Current Visit: No Status: Chronic Code(s): G25.81 - Restless legs syndrome (6) Gastroesophageal reflux disease Current Visit: Yes Status: Chronic Code(s): K21.9 - Gastro-esophageal reflux disease without esophagitis Qualifiers: Esophagitis presence: esophagitis presence not specified Qualified Code(s): K21.9 - Gastro-esophageal reflux disease without esophagitis - Assessment / Plan Additional Assessment/Plan Details: I spoke with his oncologist and he would like to continue his chemotherapeutic agent. No reported interaction with cefepime. Discontinue vancomycin. Highly unlikely that this is an MRSA pneumonia given the patient's immunocompromised status as I think he would be extremely ill and would be toxic. I think he would benefit from blood with a hemoglobin of 8, we will do a radiated, leuko-poor blood. It will not be here until tomorrow. Hold fluids. Labs in a.m. If he does well with blood transfusion, remains afebrile, then my hope is to de-escalate perhaps to Levaquin and finish her course of antibiotics over 7 days. Will need repeat imaging to ensure resolution of pneumonia down the road.
[2019-04-12] MEDS: DASATINIB PO SCH (11:55)
[2019-04-12] MEDS: FLUoxetine 20 MG CAPSULE PO SCH (19:27)
[2019-04-12] MEDS: Simvastatin Tab 10 MG TAB PO SCH (19:27)
[2019-04-12] MEDS: Zolpidem Tab 5 MG TAB PO PRN (19:29)
[2019-04-13 05:11] LABS: BASOPHILS # (AUTO) 0 10*3/UL; BASOPHILS % (AUTO) 0 % (0-1); EOSINOPHILS # (AUTO) 0.03 10*3/UL; EOSINOPHILS % (AUTO) 0.6 % (0-8); Hematocrit [HCT] 27.5 % (42.0-52.0); Hemoglobin [HGB] 8.8 g/dL (14.0-18.0); LYMPHOCYTES # (AUTO) 2.75 10*3/uL; MONOCYTES # (AUTO) 0.04 10*3/UL (0.3-0.8); MONOCYTES % (AUTO) 0.8 % (5-15); NEUTROPHILS # (AUTO) 2.21 10*3/UL; NEUTROPHILS % (AUTO) 43.8 % (50-80); RED BLOOD COUNT 2.75 10^6/uL (4.70-6.10)
[2019-04-13 05:27] LABS: BLOOD UREA NITROGEN 18 mg/dL (7-22); SERUM ALBUMIN 3.5 g/dL (3.5-4.8)
[2019-04-13 06:15] LABS: PLATELET MORPHOLOGY COMMENT NORMAL MORPHOLOGY (NORM); RBC MORPHOLOGY COMMENT NORMAL MORPHOLOGY (NORM); WBC MORPHOLOGY COMMENT NORMAL MORPHOLOGY (NORM)
[2019-04-13] MEDS: ALBUTEROL SULFATE 2.5 MG/3 ML NEB PRN (06:50)
[2019-04-13] MEDS: TIOTROPIUM BROMIDE 18 MCG CAPSULE INH SCH ×2 (06:51→07:17)
[2019-04-13] MEDS: Cefepime Inj 2 GM in Sodium Chloride 0.9% 100 ML IV SCH (07:15)
[2019-04-13] MEDS: LISINOPRIL 5 MG TABLET PO SCH (07:16)
[2019-04-13] MEDS: TAMSULOSIN 0.4 MG CAPSULE PO SCH (07:16)
[2019-04-13] MEDS: ASPIRIN EC 81 MG TABLET PO SCH (07:16)
[2019-04-13] MEDS: CARVEDILOL 12.5 MG TABLET PO SCH (07:16)
[2019-04-13] MEDS: GUAIFENESIN 600 MG TABLET PO SCH (07:16)
[2019-04-13] MEDS: Sucralfate Tab 1 GM TAB PO SCH (07:16)
[2019-04-13] MEDS: DASATINIB PO SCH ×2 (07:17→09:58)
[2019-04-13] MEDS: CHOLECALCIFEROL 1000 IU TABLET PO SCH (07:17)
[2019-04-13] MEDS ORDERED: ACETAMINOPHEN 325 MG TABLET PO ONE (10:00)
[2019-04-13] MEDS: ENOXAPARIN SODIUM 40 MG/0.4 ML SYRINGE SUBCUT SCH (10:17)
[2019-04-13] MEDS ORDERED: Sodium Chloride 0.9% 500 ML PRIMARY IV ONE (11:30)
[2019-04-13 13:13] VITALS: BP 115/73; RESP 18; TEMP 97.9
[2019-04-13 14:48] LABS: BASOPHILS # (AUTO) 0.01 10*3/UL; BASOPHILS % (AUTO) 0.1 % (0-1); EOSINOPHILS # (AUTO) 0.06 10*3/UL; EOSINOPHILS % (AUTO) 0.8 % (0-8); Hematocrit [HCT] 32.1 % (42.0-52.0); Hemoglobin [HGB] 10.8 g/dL (14.0-18.0); LYMPHOCYTES # (AUTO) 5.77 10*3/uL; MEAN CORPUSCULAR HGB CONC 33.6 g/dL (33-37); MEAN PLATELET VOLUME 8.3 FL (7.4-12.2); MONOCYTES # (AUTO) 0.04 10*3/UL (0.3-0.8); MONOCYTES % (AUTO) 0.5 % (5-15); NEUTROPHILS # (AUTO) 1.96 10*3/UL; NEUTROPHILS % (AUTO) 24.9 % (50-80); RED BLOOD COUNT 3.38 10^6/uL (4.70-6.10)
[2019-04-13 15:16] LABS: PLATELET MORPHOLOGY COMMENT NORMAL MORPHOLOGY (NORM); RBC MORPHOLOGY COMMENT SEE COMMENTS (NORM); WBC MORPHOLOGY COMMENT NORMAL MORPHOLOGY (NORM)
[2019-04-13 15:29] VITALS: O2SAT 94
--- NOTE | 2019-04-13 15:41 | DCSUMMARY ---
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 He was started on cefepime and vancomycin, and respiratory panels revealed possible Haemophilus influenza along with some viruses. He responded very quickly, and we were able to de-escalate therapy and stop vancomycin the next day. In terms of his pneumonia course, I would've preferred to stay on cefepime as it did not interfere with his chemotherapy agent, but the cost was just too great, and I think that he will respond to doxycycline to finish up therapy with the cardiology as discussed. I further discussed with his oncologist, and he felt that he would like the patient to remain on his chemotherapeutic agent through treatment as he felt like the leukemia gave him his most immunocompromised state and he was not so sure that the pneumonia was caused by the chemotherapy agent although I will mention that it is a side effect of it and I told the family this as well. The patient prefers to stay on the agent. In terms of his oxygenation, he was 87% on room air on the date of discharge summary prescribed 2 L for the next month. In terms of his blood counts, he dropped down to a hemoglobin of about 8. We transfused 2 units of packed red blood cells, leuko-poor and irradiated, and his hemoglobin came up to 10.8. I also discussed that with his oncologist. Today, the patient would like to get out of the hospital. He has no chest pain, cough is much better, shortness breath is improved, and no nausea or vomiting. Assessment and Plan: 1. As per discharge assessments noted 2. Disposition: Patient is discharged home. 3. Condition on discharge, stable and improved. 4. Diet: regular diet 5. Activities: resume normal activities, but I have recommended staying on oxygen for the next couple of months 6. Follow-Up: 1. Dr. Montoya one week 2. See Dr. Ramirez for continued follow-up on ALL and the next couple of weeks 7. Medications at the Time of Discharge: Home Medications Medication Instructions Recorded Confirmed aspirin 81 mg tablet,delayed 81 mg PO QDAY #30 tab 10/27/18 04/11/19 release albuterol sulfate HFA 90 2 puff INH Q4-6H PRN #18 g 02/09/19 04/11/19 mcg/actuation aerosol inhaler amlodipine 10 mg tablet 10 mg PO QDAY #90 tab 02/09/19 04/11/19 carvedilol 12.5 mg tablet 12.5 mg PO BID #180 tab 02/09/19 04/11/19 dasatinib 20 mg tablet 20 mg PO QDAY tab 02/09/19 04/11/19 lisinopril 5 mg tablet 5 mg PO QDAY #90 tab 02/09/19 04/11/19 ondansetron 4 mg disintegrating 4 mg PO Q12H #30 tab 02/09/19 04/11/19 tablet fluoxetine 20 mg capsule 60 mg PO QDAY cap 02/28/19 04/11/19 simvastatin 10 mg tablet 10 mg PO QHS tab 02/28/19 04/11/19 tamsulosin 0.4 mg capsule 0.4 mg PO QHS cap 02/28/19 04/11/19 cholecalciferol (vitamin D3) 1,000 1,000 unit PO QDAY #30 cap 03/16/19 04/11/19 unit capsule vitamin B complex tablet 1 tab PO QDAY #30 tab 03/16/19 04/11/19 ipratropium-albuterol 0.5 mg-3 3 ml INH Q6-8H PRN #180 ml 03/19/19 04/11/19 mg(2.5 mg base)/3 mL nebulization soln tiotropium bromide 2.5 2 puff INH QDAY #4 g 03/20/19 04/11/19 mcg/actuation mist for inhalation sucralfate 1 gram tablet 1 g PO BID #180 tab 04/09/19 04/11/19 Guaifenesin 400 mg PO BID 04/11/19 04/11/19 Doxycycline Monohydrate 100 mg PO BID #11 capsule 04/13/19 8. Time, care, counseling and coordination of care for this discharge is greater than 30 minutes. Exam - Vitals Vital Signs: Vital Signs Temperature 97.9 F Temperature Source Oral Pulse Rate [Apical] 80 Pulse Rate [Pulse Oximeter 79 Right] Pulse Rate [Left middle finger 68 ] Pulse Rate 62 Respiratory Rate 18 Blood Pressure [Right Arm] 122/71 Blood Pressure [Left Arm] 101/81 Blood Pressure 115/73 Pulse Ox [Left middle finger] 94 Pulse Ox 92 Oxygen Flow Rate [Left middle 2 finger] Oxygen Flow Rate 2 Oxygen Delivery Method [Left Nasal Cannula middle finger] Oxygen Delivery Method Nasal Cannula Height 5 ft 8 in Weight 216 lb 12.8 oz - General General Appearance: No Acute Distress, Cooperative - Head Head Exam: Normal Inspection (Scar from prior procedure on upper portion of scalp), Normocephalic - Eye Eye Exam: POSITIVE: No Scleral Icterus - ENT ENT Exam: POSITIVE: Mucous Membranes Moist - Neck Neck Exam: JVP is not Raised - Respiratory Respiratory Exam: POSITIVE: Breathing Non Labored, Crackles (Crackles in left base persist, a little better) - Cardiovascular Cardiovascular Exam: POSITIVE: RRR, No Murmur, No Clicks, No Gallops, No Rubs, No JVD - GI/Abdominal GI/Abdominal Exam: POSITIVE: Normal Bowel Sounds, Non Tender, Non Distended, Soft - Extremities Extremities Exam: POSITIVE: No Clubbing Present, No Edema Present, No Cyanosis Present - Neurological Neurological Exam: POSITIVE: Alert, Oriented x 3, No Facial Droop, Speech Intact / Clear, Moves All Extremities Equally - Central Line Examination Central Line Type: Med-Port Central Line Location: Subclavian (R) Central Line Site Observations: POSITIVE: Asymptomatic, Intact, Patent Data Peritnent Studies: 04/11/19 04/11/19 04/13/19 12:15 17:35 04:40 WBC Hgb Hct Plt Count Sodium 141 Potassium 4.4 Chloride 110 Carbon Dioxide 17 L Anion Gap 14 BUN 18 Creatinine 1.0 Estimated GFR > 60 BUN/Creatinine Ratio 18.00 Glucose 101 Calculated Osmolality 293.0 H Lactic Acid 0.8 Calcium 8.5 L Total Bilirubin 0.1 L AST 23 ALT 27 Alkaline Phosphatase 62 Total Protein 6.0 L Albumin 3.5 Globulin 2.5 Albumin/Globulin Ratio 1.40 Group A Strep Screen Negative Ur Strep pneumoniae Ag 04/13/19 04/13/19 13:24 14:00 WBC 7.86 Hgb 10.8 L Hct 32.1 L Plt Count 112 L Sodium Potassium Chloride Carbon Dioxide Anion Gap BUN Creatinine Estimated GFR BUN/Creatinine Ratio Glucose Calculated Osmolality Lactic Acid Calcium Total Bilirubin AST ALT Alkaline Phosphatase Total Protein Albumin Globulin Albumin/Globulin Ratio Group A Strep Screen Ur Strep pneumoniae Ag Negative Procedures: [address] [facility] [place] [address] PH: DD: [phone] FAX: [phone] ~DIAGNOSTIC IMAGING REPORT~ Patient: Esperanza Higgins : 1965 Sex: M Age: 54 Exam Name: CT CTA Chest Non-Coronary WWO Exam Date: 04/11/19 Report # : [id number] CPT Code: 02456 EMR/MR #: [id number] Ordering: Dave Griffin Admiting: Primary: Dante Kam MD Attending: Signed CT CTA Chest Non-Coronary WWO 04/11/2019 12:59 PM [place] [facility] [place] Comparison: Chest x-ray from earlier the same day. CTA PE 09/30/2018, 09/14/2018. Procedure: CT angiography of the pulmonary arteries was performed after the administration of 64 mL of Ultravist 370 intravenous contrast. Findings: There is a right chest Port-A-Cath with the tip in the distal SVC. There is a 2-lead left chest cardiac device with wire tips in the right atrium and right ventricle. There is normal opacification of the main and proximal segmental pulmonary arteries with no evidence of filling defect. Contrast bolus timing is suboptimal for the visualization of more distal emboli. Evaluation of the lungs demonstrates early consolidation in the left lower lobe. Tree in bud opacities are noted in the left upper, lingular, and left lower lobes. There is mild diffuse bronchial wall thickening. There is no mediastinal or hilar lymphadenopathy. The aorta and branch vessels demonstrate normal course and caliber. The main pulmonary artery is dilated at 3.3 cm. Heart size is enlarged with mild pericardial effusion. There are atherom atous aortic and coronary artery calcifications. The thyroid exhibits normal CT morphology. The visualized upper abdominal structures are unremarkable. The osseous structures are not significantly changed. There is no evidence of acute or healing rib fractures. There is moderate bilateral gynecomastia. Impression: 1. No main or proximal segmental pulmonary embolism. Contrast bolus timing is suboptimal for the evaluation of more distal emboli. 2. Multifocal airspace disease. Repeat imaging is recommended 6 weeks following completion of therapy in order to ensure resolution. 3. Cardiomegaly with mild pericardial effusion. 4. There is diffuse bronchial wall thickening without endobronchial lesion. This is a non-specific finding that is most commonly seen in the setting of acute or chronic bronchitis, as well as reactive airways disease. 5. The main pulmonary artery is dilated, a finding associated with pulmonary artery hypertension. Dictated By: 04/11/19 1431 ROSI BARTHOLOMEW MD. Signed By: 04/11/19 1448 ROSI BARTHOLOMEW MD. 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 Active/Remission status: without remission Qualified Code(s): C91.00 - Acute lymphoblastic leukemia not having achieved remission Category: Medical (3) Atrial fibrillation Current Visit: Yes Status: Acute Code(s): I48.91 - Unspecified atrial fibrillation Qualifiers: Atrial fibrillation type: unspecified Qualified Code(s): I48.91 - Unspecified atrial fibrillation Category: Medical (4) Pacemaker Current Visit: Yes Status: Chronic Code(s): Z95.0 - Presence of cardiac pacemaker Category: Medical (5) Restless legs syndrome Current Visit: No Status: Chronic Code(s): G25.81 - Restless legs syndrome Category: Medical (6) Gastroesophageal reflux disease Current Visit: Yes Status: Chronic Code(s): K21.9 - Gastro-esophageal reflux disease without esophagitis Qualifiers: Esophagitis presence: esophagitis presence not specified Qualified Code(s): K21.9 - Gastro-esophageal reflux disease without esophagitis Category: Medical
[2019-04-13] MEDS ORDERED: Cefepime Inj 2 GM in Sodium Chloride 0.9% 100 ML IV SCH (18:00)
== END 2019-04-13 17:06 | disposition home or self-care (01) | DRG 194 ==
LOC: ER 11:22 → MED/SURG 16:35
PROVIDERS: ADMIT Family Medicine; ATTEND Family Medicine

== ENCOUNTER 2019-04-20 20:27 | Inpatient (IN) ==
[2019-04-20] MEDS ORDERED: Sodium Chloride 0.9% 1,000 ML PRIMARY IV ONE (20:35)
[2019-04-20] MEDS ORDERED: IPRATROPIUM/ALBUTEROL SULFATE 3 ML NEB NEB ONE (20:37)
--- NOTE | 2019-04-20 20:56 | EKG ---
[address] [place] [address] Measurements Intervals [place] Rate: 67 P: 60 NC: 165 QRS: 37 QRSD: 98 T: -3 QT: 471 QTc: 487 Interpretive Statements SINUS RHYTHM WITH OCCASIONAL SUPRAVENTRICULAR PREMATURE COMPLEXES NONSPEIFIC ST-T CHANGES PROLONGED QT INTERVAL Compared to ECG 04/11/2019 11:32:51 ST (T wave) deviation now present Prolonged QT interval now present Electronically Signed On 04-21-19 15:25:33 MDT by Dung Murphy [email or web address]
[2019-04-20 20:59] LABS: BASOPHILS # (AUTO) 0.01 10*3/UL; BASOPHILS % (AUTO) 0.2 % (0-1); EOSINOPHILS # (AUTO) 0.17 10*3/UL; EOSINOPHILS % (AUTO) 3.3 % (0-8); Hematocrit [HCT] 33.7 % (42.0-52.0); Hemoglobin [HGB] 11.1 g/dL (14.0-18.0); MEAN CORPUSCULAR HEMOGLOBIN 31.5 PG (27-31); MEAN CORPUSCULAR HGB CONC 32.9 g/dL (33-37); MEAN CORPUSCULAR VOLUME 95.7 FL (80-90); MEAN PLATELET VOLUME 8.2 FL (7.4-12.2); MONOCYTES # (AUTO) 0.02 10*3/UL (0.3-0.8); MONOCYTES % (AUTO) 0.4 % (5-15); NEUTROPHILS # (AUTO) 2.01 10*3/UL; NEUTROPHILS % (AUTO) 38.3 % (50-80); RED BLOOD COUNT 3.52 10^6/uL (4.70-6.10)
[2019-04-20 21:07] LABS: PLATELET MORPHOLOGY COMMENT NORMAL MORPHOLOGY (NORM); RBC MORPHOLOGY COMMENT NORMAL MORPHOLOGY (NORM); WBC MORPHOLOGY COMMENT NORMAL MORPHOLOGY (NORM)
[2019-04-20 21:10] LABS: VENOUS PH 7.5 (7.32-7.42)
[2019-04-20 21:12] LABS: BLOOD UREA NITROGEN 29 mg/dL (7-22); BUN/CREATININE RATIO 24.16 (6-20); SERUM ALBUMIN 3.7 g/dL (3.5-4.8)
--- NOTE | 2019-04-20 21:47 | DI ---
AP CHEST X-RAY, 04/20/2019 8:35 PM : Clinical History: Hypoxia. Cough. Previous Exam: 04/11/2019. Soft Tissues: No acute soft tissue abnormality. The patient has a dual-chamber pacemaker and defibril lator and both leads are in the appropriate position. There is a indwelling port inserted from the [facility] internal jugular approach and the catheter tip is in the superior vena cava. Bones: Normal. Heart: Cardiomegaly. There is a globular configuration and on the lateral view of the prior chest x-r ay, there was separation of the epicardial fat pad from the pericardial fat pad indicating there is a pericardial effusion. There is no CHF. Lungs: Persistent patchy left lower lobe pneumonia. Effusion(s): None. Mediastinum: Normal mediastinum. Nodules: No pulmonary nodules. Readin. Persistent left lower lobe pneumonia. 2. Cardiomegaly without CHF. The globular heart shape without failure is indicative of a pericardial effusion that was demonstrated on the previous chest x-ray.
--- NOTE | 2019-04-20 23:20 | DI ---
EXAM: CT Angiography Chest Without And With Intravenous Contrast CLINICAL HISTORY: ITS.REASON hypoxia, elevated d-dimer Physician Notes: Tech Comments: TECHNIQUE: Axial computed tomographic angiography images of the chest without and with intravenous contrast using pulmonary embolism protocol. MIP reconstructed images were created and reviewed. COMPARISON: 04/11/19 FINDINGS: Pulmonary arteries: No evidence of pulmonary emboli. Aorta: No aortic dissection or aneurysm. Lungs: No significant change in the patchy nodular and reticular opacities in the left upper lobe, lingula, and left lower lobe and to a lesser degree in the right lower lobe is concerning for multifocal atypical pneumonia. Pleural space: Unremarkable. Heart: No significant change in a small to moderate pericardial effusion with maximum thickness of 13 mm. Scattered coronary artery calcifications. Bones/joints: Unremarkable. Soft tissues: Unremarkable. Lymph nodes: No enlarged or abnormal lymph nodes. IMPRESSION: No evidence of pulmonary emboli. No significant change in the patchy nodular and reticular opacities in the left upper lobe, lingula, and left lower lobe and to a lesser degree in the right lower lobe is concerning for multifocal atypical pneumonia. No significant change in a small to moderate pericardial effusion with maximum thickness of 13 mm.
[2019-04-20] MEDS ORDERED: Cefepime Inj 1 GM in Sodium Chloride 0.9% 100 ML IV ONE (23:27)
--- NOTE | 2019-04-21 00:37 | PDOC ---
HPI - History of Present Illness Date of Service: 04/21/19 Time of Service: 01:25 Chief Complaint: Continued to have cough, fever at home and phlegm production. History of Present Illness: This is a 54 years old male with medical history significant for history of ALL currently on oral chemotherapeutic agent, history of GERD, history of COPD, who came into the hospital on the and was diagnosed with pneumonia treated for 2 days and was discharged home on doxycycline. He said he felt better for 2 days only after discharge and then symptoms recurred with the cough and chills and fever and because of that he came back to the hospital he had a CT done in the ER still showed presence of pneumonia and because of continuous symptoms he was admitted. He did receive cefepime and azithromycin. Past Medical History Medical History: 1. ALL, this was diagnosed 6 years ago said he had chemotherapy and apparently was in remission until 2 years ago when he had recurrence and he's been on oral chemotherapeutic agent and according to him seems to be under control. He goes to [facility] and have blood tests every 4 weeks. 2. GERD. 3. HTN. 4. reportedly, COPD. 5. Restless leg syndrome. 6. atrial fibrillation Surgical History: 1. Right upper chest port. 2. Status post appendectomy. 3. Pacemaker with AICD per the patient Pertinent Family History: He states his mother gets "blackout spells" Past Social History: , has children that are healthy. Does not smoke tobacco or drink alcohol at this time. Tobacco Use: Former Smoker In the Past 12 Months, Have Used or Abuse Any of the Following Substance: None Medication / Allergies Home Medications: Home Medications Medication Instructions Recorded Confirmed aspirin 81 mg tablet,delayed 81 mg PO QDAY #30 tab 10/27/18 04/20/19 release albuterol sulfate HFA 90 2 puff INH Q4-6H PRN #18 g 02/09/19 04/20/19 mcg/actuation aerosol inhaler amlodipine 10 mg tablet 10 mg PO QDAY #90 tab 02/09/19 04/20/19 carvedilol 12.5 mg tablet 12.5 mg PO BID #180 tab 02/09/19 04/20/19 dasatinib 20 mg tablet 20 mg PO QDAY tab 02/09/19 04/20/19 lisinopril 5 mg tablet 5 mg PO QDAY #90 tab 02/09/19 04/20/19 ondansetron 4 mg disintegrating 4 mg PO Q12H #30 tab 02/09/19 04/20/19 tablet fluoxetine 20 mg capsule 60 mg PO QDAY cap 02/28/19 04/20/19 simvastatin 10 mg tablet 10 mg PO QHS tab 02/28/19 04/20/19 cholecalciferol (vitamin D3) 1,000 1,000 unit PO QDAY #30 cap 03/16/19 04/20/19 unit capsule vitamin B complex tablet 1 tab PO QDAY #30 tab 03/16/19 04/20/19 ipratropium-albuterol 0.5 mg-3 3 ml INH Q6-8H PRN #180 ml 03/19/19 04/20/19 mg(2.5 mg base)/3 mL nebulization soln tiotropium bromide 2.5 2 puff INH QDAY #4 g 03/20/19 04/18/19 mcg/actuation mist for inhalation guaifenesin 400 mg tablet 400 mg PO BID 04/18/19 04/20/19 sucralfate 1 gram tablet 1 g PO BID tab 04/18/19 04/20/19 tamsulosin 0.4 mg capsule 0.4 mg PO QDAY cap 04/18/19 04/20/19 tiotropium 2.5 mcg-olodaterol 2.5 4 gm Mist.Inhal#2 Samples 04/18/19 04/18/19 mcg/actuation mist for inhalation Allergies/Adverse Reactions: Allergies Allergy/AdvReac Type Severity Reaction Status Date / Time No Known Allergies Allergy Verified 04/18/19 11:31 Review of Systems - Review of Systems All Systems: Reviewed & No Additional Complaints Except as Stated Exam - Vitals Vital Signs: Vital Signs Temperature 98 F Temperature Source Temporal Artery Scan Pulse Rate [Pulse Oximeter] 74 Pulse Rate 72 Respiratory Rate 24 Blood Pressure [Right Arm] 133/91 Pulse Ox 92 Oxygen Flow Rate 2 Oxygen Delivery Method Nasal Cannula Height 5 ft 8 in Weight 223 lb - General General Appearance: No Acute Distress, Cooperative - Head Head Exam: Normal Inspection - Eye Eye Exam: POSITIVE: Normal Appearance - ENT ENT Exam: POSITIVE: Normal Exam - Neck Neck Exam: Normal Inspection - Respiratory Additional Respiratory Exam Details: few crackles at the bases with occasional wheeze - Cardiovascular Cardiovascular Exam: POSITIVE: RRR - GI/Abdominal GI/Abdominal Exam: POSITIVE: Normal Bowel Sounds, Non Tender, Non Distended, Soft, No Organomegaly - Rectal Rectal Exam: POSITIVE: Deferred - External Exam: POSITIVE: Deferred - Extremities Extremities Exam: POSITIVE: Normal Inspection - Back Back Exam: POSITIVE: Normal Inspection - Neurological Neurological Exam: POSITIVE: Alert, Reflexes Normal, CN II-XII Intact, No Facial Droop, Speech Intact / Clear - Psychiatric Psychiatric Exam: POSITIVE: Normal Affect - Integumentary Integumentary Exam: POSITIVE: Normal Color Results - Labs CBC and BMP: 04/20/19 20:48 04/20/19 20:48 - Imaging Status: Report Reviewed by Me (Ct chest No evidence of pulmonary emboli. No significant change in the patchy nodular and reticular opacities in the left upper lobe, lingula, and left lower lobe and to a lesser degree in the right lower lobe is concerning for multifocal atypical pneumonia. No significant change in a small to moderate pericardial effusion with maximum thickness of 13 mm.) Assessment and Plan - Patient Problems (1) Pneumonia Current Visit: Yes Status: Acute Comment: I think will put him back on IV antibiotics and see his response. Consider adding some steroid if no improvement. Code(s): J18.9 - Pneumonia, unspecified organism (2) COPD (chronic obstructive pulmonary disease) Current Visit: No Status: Acute Comment: continue breathing treatment Code(s): J44.9 - Chronic obstructive pulmonary disease, unspecified (3) Gastroesophageal reflux disease Current Visit: No Status: Chronic Comment: Same med Code(s): K21.9 - Gastro-esophageal reflux disease without esophagitis Qualifiers: Esophagitis presence: esophagitis presence not specified Qualified Code(s): K21.9 - Gastro-esophageal reflux disease without esophagitis (4) Hypertension Current Visit: Yes Status: Acute Comment: same med Code(s): I10 - Essential (primary) hypertension
[2019-04-21] MEDS ORDERED: LIDOCAINE W/ SODIUM BICARB 0.5 ML SYR SUBD PRN (01:11)
[2019-04-21] MEDS ORDERED: LORazepam 1 MG TABLET PO ONE (01:16)
[2019-04-21 01:34] LABS: BILIRUBIN,URINE NEGATIVE (NEG); CLARITY,URINE CLEAR (CLEAR); COLOR,URINE YELLOW (Y); GLUCOSE, URINE (UA) NEGATIVE (NEG); OCCULT BLOOD,URINE Trace-lysed (NEG); PROTEIN,URINE 30 mg/dl (NEG); UROBILINOGEN,URINE 0.2 EU/dL (0.2)
[2019-04-21] MEDS: Lactated Ringers 1,000 ML PRIMARY IV SCH ×2 (01:36→16:22)
[2019-04-21 01:43] LABS: RBC,URINE 0-2 /hpf; URINE SAMPLE TYPE CLEAN CATCH URINE; WBC,URINE 0-1
--- NOTE | 2019-04-21 06:09 | PDOC ---
General Adult HPI - General Chief Complaint: General Medical Stated Complaint: increased fever, chills with pnumonia Date Seen by Provider: 04/20/19 Time Seen by Provider: 20:30 Source: POSITIVE: Patient Exam Limitations: POSITIVE: No limitations Nurse's Notes Reviewed & Considered: Yes - History of Present Illness Initial Comment: The patient is a 54-year-old male who presents to the emergency department with complaints of fever, chills, increase in productive cough and shortness of breath. The patient has a history of acute lymphocytic leukemia and is currently undergoing treatment with oral chemotherapy managed by the oncologist in [place]. He was recently hospitalized for pneumonia. At that time he did test positive for Haemophilus influenza on the [employer]. He also tested positive for parainfluenza virus and rhinovirus. He was treated initially with cefepime and vancomycin and then subsequently pared down to cefepime and discharged home on doxycycline. He states that he completed his antibiotics several days ago. He reports that over the past 24 hours he's developed increase in productive cough and shortness of breath. Today he has had fever at home with associated chills. He is concerned that his pneumonia is returning. He denies any current chest pain although he does report some intermittent twinges of sharp pain in the left upper chest. Have you received a tetanus shot in the past 10 years?: Yes - Patient Home Medications Home Medications: Home Medications aspirin 81 mg tablet,delayed release 81 mg PO QDAY #30 tab 10/27/18 albuterol sulfate HFA 90 mcg/actuation aerosol inhaler 2 puff INH Q4-6H PRN #18 g 02/09/19 amlodipine 10 mg tablet 10 mg PO QDAY #90 tab 02/09/19 carvedilol 12.5 mg tablet 12.5 mg PO BID #180 tab 02/09/19 dasatinib 20 mg tablet 20 mg PO QDAY tab 02/09/19 lisinopril 5 mg tablet 5 mg PO QDAY #90 tab 02/09/19 ondansetron 4 mg disintegrating tablet 4 mg PO Q12H #30 tab 02/09/19 fluoxetine 20 mg capsule 60 mg PO QDAY cap 02/28/19 simvastatin 10 mg tablet 10 mg PO QHS tab 02/28/19 cholecalciferol (vitamin D3) 1,000 unit capsule 1,000 unit PO QDAY #30 cap vitamin B complex tablet 1 tab PO QDAY #30 tab 03/16/19 ipratropium-albuterol 0.5 mg-3 mg(2.5 mg base)/3 mL nebulization soln 3 ml INH Q6-8H PRN #180 ml 03/19/19 tiotropium bromide 2.5 mcg/actuation mist for inhalation 2 puff INH QDAY #4 g 03/20/19 guaifenesin 400 mg tablet 400 mg PO BID 04/18/19 sucralfate 1 gram tablet 1 g PO BID tab 04/18/19 tamsulosin 0.4 mg capsule 0.4 mg PO QDAY cap 04/18/19 - Patient Allergies Allergies/Adverse Reactions: Allergies Allergy/AdvReac Type Severity Reaction Status Date / Time No Known Allergies Allergy Verified 04/18/19 11:31 Past Medical History - heen HEENT History: Denies History Cardiovascular History: Hypertension, CAD, Pacemaker, Internal Defibrillator Respiratory History: COPD, Shortness of Breath, Other (please comment) Additional Respiratory History: hypoxia Gastrointestinal History: GERD Additional Gastrointestinal History: GI BLEED Genitourinary History: Denies History Endocrine History: Denies History Musculoskeletal History: Denies History Prosthesis or Implant: Yes (Shunt in head/pacemaker) Neurological History: Other (please comment) Additional Neurological History: SHUNT IN HIS HEAD. Restless leg syndrome Blood Disorders: Anemia, Other (please comment) Additional Blood Disorders History: LEUKEMIA Psychiatric History: Anxiety Disorders History of Sexually Transmitted Diseases: No Cancer History: Leukemia In Past Year Been Physically Harmed or Verbally Threatened: No History of MDRO: No History of Other Communicable Diseases: No Tobacco Use: Former Smoker In the Past 12 Months, Have Used or Abuse Any Substance: None Previous Surgical History: Yes Type / Date of Surgery: APPY,PACEMAKER/DEFEBRILLATOR/SHUNT IN HEAD with port placement Anesthesia Reactions: No Malignant Hyperthermia: No Significant Family History: No pertinent family hx Past Medical History Reviewed: Reviewed - No Changes ROS - Limitations ROS Limitations: No Limitations Constitution: REPORTS: Chills, Fever Cardiovascular: REPORTS: Chest Pain (Intermittent left upper chest pains, sharp) Respiratory: REPORTS: Cough Productive, Shortness Of Breath, Other (He is still currently on oxygen which he was discharged on from the hospital) Neurological: REPORTS: Denies Neuro Symptoms Gastrointestinal: REPORTS: Denies GI Symptoms Musculoskeletal: DENIES: Lower Extremity Swelling Genitourinary: REPORTS: Denies Symptoms Eyes: REPORTS: Denies Symptoms ENT: REPORTS: Denies Symptoms Skin: DENIES: Rash General Adult Exam - General Appearance General Appearance: POSITIVE: Alert, Cooperative, No Acute Distress - HEENT HEENT: POSITIVE: Head Inspection Nml, Eyes Inspection Nml, Ears Inspection Nml, Nose Inspection Nml, Pharynx Inspect. Nml - Neck Neck: POSITIVE: Normal Inspection. NEGATIVE: Lymphadenopathy - Respiratory Respiratory: POSITIVE: Other (The patient does have frequent productive cough, breath sounds are somewhat diminished with rhonchi noted in the bases bilaterally) - Cardiovascular Cardiovascular: POSITIVE: Regular Rate & Rhythm, No Murmur Peripheral Pulses: Dorsalis-pedis (R): 2+, Dorsalis-pedis (L): 2+ - Abdomen Abdomen: Soft: (All Quadrants), Denies Tenderness: (All Quadrants), No Guarding: (All Quadrants), No Rebound: (All Quadrants) - Skin Skin: POSITIVE: Normal Color, No Rash - Extremities Extremity: Normal ROM: (All Extremities), Normal Inspection: (All Extremities) - Neurological / Psychological Neurological: POSITIVE: Oriented X3, mail sorting supervisor Normal As Tested, Motor Normal, Sensation Normal General Adult Progress - Results Reviewed by me Xrays/CTs/US Reviewed by me: Yes Discussed with Radiologist: Yes Radiology Findings: Chest x-ray shows continued infiltrate in the left lower lung per radiologist. CT of the chest shows no evidence of PE, continued patchy infiltrates in the left upper, left mid, left lower and right lower lung per radiologist. Lab Results Reviewed by Me: Yes Lab Results:: Laboratory Results 04/20/19 04/20/19 04/20/19 20:48 20:48 20:48 WBC 5.23 RBC 3.52 L Hgb 11.1 L Hct 33.7 L MCV 95.7 H MCH 31.5 H MCHC 32.9 L RDW Std Deviation 63.3 H RDW Coeff of Susanne 18.6 H Plt Count 107 L MPV 8.2 Immature Gran % (Auto) 0.4 Neut % (Auto) 38.3 L Lymph % (Auto) 57.4 H Calloway % (Auto) 0.4 L Eos % (Auto) 3.3 Baso % (Auto) 0.2 Immature Gran # (Auto) 0.02 Neut # (Auto) 2.01 Lymph # (Auto) 3.00 Calloway # (Auto) 0.02 L Eos # (Auto) 0.17 Baso # (Auto) 0.01 WBC Morphology Comment Normal morphology Plt Morphology Comment Normal morphology RBC Morph Comment Normal morphology D-Dimer 709 H VBG pH VBG pCO2 VBG HCO3 VBG Base Excess Sodium 140 Potassium 4.0 Chloride 106 Carbon Dioxide 20 L Anion Gap 14 BUN 29 H Creatinine 1.2 Estimated GFR > 60 BUN/Creatinine Ratio 24.16 H Glucose 113 H Calculated Osmolality 296.0 H Lactic Acid Calcium 8.3 L Magnesium 1.8 Total Bilirubin 0.2 L AST 37 ALT 35 Alkaline Phosphatase 68 Troponin I C-Reactive Protein 1.9 H NT-Pro-B Natriuret Pep 740 H Total Protein 6.3 Albumin 3.7 Globulin 2.5 Albumin/Globulin Ratio 1.40 04/20/19 04/20/19 04/20/19 20:48 20:48 21:05 WBC RBC Hgb Hct MCV MCH MCHC RDW Std Deviation RDW Coeff of Susanne Plt Count MPV Immature Gran % (Auto) Neut % (Auto) Lymph % (Auto) Calloway % (Auto) Eos % (Auto) Baso % (Auto) Immature Gran # (Auto) Neut # (Auto) Lymph # (Auto) Calloway # (Auto) Eos # (Auto) Baso # (Auto) WBC Morphology Comment Plt Morphology Comment RBC Morph Comment D-Dimer VBG pH 7.5 H VBG pCO2 28 L VBG HCO3 22 VBG Base Excess -1 Sodium Potassium Chloride Carbon Dioxide Anion Gap BUN Creatinine Estimated GFR BUN/Creatinine Ratio Glucose Calculated Osmolality Lactic Acid 1.0 Calcium Magnesium Total Bilirubin AST ALT Alkaline Phosphatase Troponin I < 0.012 C-Reactive Protein NT-Pro-B Natriuret Pep Total Protein Albumin Globulin Albumin/Globulin Ratio CBC and BMP: 04/20/19 20:48 04/20/19 20:48 EKG Interpretation:: POSITIVE: Normal Sinus Rhythm, Normal Rate, Normal QRS, Normal ST/T - Patient's Progress MDM / ED Course: The patient was afebrile on arrival here in the emergency department however does report fever at home. Oxygen saturations were in the low 90s on 2 L per nasal cannula. Blood cultures and lactate were drawn with initial IV start. Chest x-ray shows continued infiltrate in the left lower lobe per radiologist. Blood work reveals a white count of 5 with a hemoglobin of 11.1. His d-dimer was elevated at 709, BNP was elevated at 740. His troponin was normal. Lactate was 1.0. Chemistries were essentially unremarkable. Subsequent CTA of the chest shows continued patchy infiltrates in the left upper, left mid, left lower and right lower lobe with no evidence of PE per radiologist. These findings were discussed with the patient as well as with Dr. Freitas. Decision was made to admit the patient for IV antibiotics. He recommended cefepime and Zithromax which was initiated here in the emergency department. These recommendations were discussed with the patient and he is in agreement with current plan. - Consult Counseled: POSITIVE: Patient, Family, RE: Lab Results, RE: Radiology Results, RE: DX Patient Care Time - Estimated PCT Patient Care Time (In Minutes): 35 Vital Signs - VS Reviewed Vital Signs Reviewed: Yes Discharge Clinical Impression: Pneumonia Leukemia Qualifiers: 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 Active/Remission status: without remission Qualified Code(s): C91.00 - Acute lymphoblastic leukemia not having achieved remission Discharge Disposition: Admit to Inpatient Condition: Fair Date Decision to Admit to Inpatient: 04/20/19 Time Decision to Admit to Inpatient: 23:15
[2019-04-21] MEDS: IPRATROPIUM/ALBUTEROL SULFATE 3 ML NEB NEB PRN ×2 (06:29→13:08)
[2019-04-21] MEDS: FLUoxetine 20 MG CAPSULE PO SCH (08:05)
[2019-04-21] MEDS: TAMSULOSIN 0.4 MG CAPSULE PO SCH (08:05)
[2019-04-21] MEDS: CHOLECALCIFEROL 1000 IU TABLET PO SCH (08:06)
[2019-04-21] MEDS: CARVEDILOL 12.5 MG TABLET PO SCH ×2 (08:06→20:18)
[2019-04-21] MEDS: Meropenem Inj 1 GM in Sodium Chloride 0.9% 100 ML IV SCH ×3 (08:06→23:46)
[2019-04-21] MEDS: ASPIRIN EC 81 MG TABLET PO SCH (08:06)
[2019-04-21 08:38] LABS: BASOPHILS # (AUTO) 0.01 10*3/UL; BASOPHILS % (AUTO) 0.3 % (0-1); EOSINOPHILS # (AUTO) 0.17 10*3/UL; EOSINOPHILS % (AUTO) 4.6 % (0-8); Hemoglobin [HGB] 10.3 g/dL (14.0-18.0); LYMPHOCYTES # (AUTO) 1.96 10*3/uL; MEAN CORPUSCULAR HEMOGLOBIN 31.8 PG (27-31); MEAN CORPUSCULAR HGB CONC 33.2 g/dL (33-37); MEAN CORPUSCULAR VOLUME 95.7 FL (80-90); MEAN PLATELET VOLUME 8.5 FL (7.4-12.2); MONOCYTES # (AUTO) 0.02 10*3/UL (0.3-0.8); MONOCYTES % (AUTO) 0.5 % (5-15); NEUTROPHILS # (AUTO) 1.53 10*3/UL; NEUTROPHILS % (AUTO) 41.3 % (50-80); RED BLOOD COUNT 3.24 10^6/uL (4.70-6.10)
[2019-04-21 08:44] LABS: BLOOD UREA NITROGEN 23 mg/dL (7-22); BUN/CREATININE RATIO 25.55 (6-20)
[2019-04-21 08:57] LABS: PLATELET MORPHOLOGY COMMENT NORMAL MORPHOLOGY (NORM); RBC MORPHOLOGY COMMENT NORMAL MORPHOLOGY (NORM); WBC MORPHOLOGY COMMENT NORMAL MORPHOLOGY (NORM)
[2019-04-21] MEDS: DASATINIB 20 MG PO SCH (09:51)
--- NOTE | 2019-04-21 10:06 | PDOC(PROG) ---
Objective : Data - Labs CBC and BMP: 04/21/19 08:15 04/21/19 08:15 Assessment and Plan - Patient Problems (1) Pneumonia Current Visit: Yes Status: Acute Code(s): J18.9 - Pneumonia, unspecified organism (2) Gastroesophageal reflux disease Current Visit: No Status: Chronic Comment: Continue IV antibiotics for now we'll see how the patient responds Code(s): K21.9 - Gastro-esophageal reflux disease without esophagitis Qualifiers: Esophagitis presence: esophagitis presence not specified Qualified Code(s): K21.9 - Gastro-esophageal reflux disease without esophagitis (3) COPD (chronic obstructive pulmonary disease) Current Visit: No Status: Acute Code(s): J44.9 - Chronic obstructive pulmonary disease, unspecified (4) Hypertension Current Visit: Yes Status: Acute Code(s): I10 - Essential (primary) hyperte nsion
--- NOTE | 2019-04-21 10:07 | PDOC(PROG) ---
Interval History: Feeling much better compared to yesterday no chest pain Objective : Data - Labs CBC and BMP: 04/21/19 08:15 04/21/19 08:15 Objective : Exam - General General Appearance: Cooperative - Respiratory Respiratory Exam: Decreased Breath Sounds, Wheezes - Cardiovascular Cardiovascular Exam: RRR, No Murmur, No Clicks, No Gallops, No Rubs, PMI Non- Displaced - GI/Abdominal GI/Abdominal Exam: Normal Bowel Sounds, Non Tender, Non Distended, Soft, No Masses, No Hepatomegaly, No Splenomegaly, No Organomegaly - Extremities Extremities Exam: No Clubbing Present, No Edema Present, No Cyanosis Present Assessment and Plan - Patient Problems (1) Pneumonia Current Visit: Yes Status: Acute Comment: Continue IV antibiotics Code(s): J18.9 - Pneumonia, unspecified organism (2) Gastroesophageal reflux disease Current Visit: No Status: Chronic Comment: Continue current meds Code(s): K21.9 - Gastro-esophageal reflux disease without esophagitis Qualifiers: Esophagitis presence: esophagitis presence not specified Qualified Code(s): K21.9 - Gastro-esophageal reflux disease without esophagitis (3) COPD (chronic obstructive pulmonary disease) Current Visit: No Status: Acute Comment: Patient on DuoNeb will add some steroids Code(s): J44.9 - Chronic obstructive pulmonary disease, unspecified (4) Hypertension Current Visit: Yes Status: Acute Comment: Stable Code(s): I10 - Essential (primary) hypertension
[2019-04-21] MEDS ORDERED: ALBUTEROL SULFATE 8.5 GM HFA INHALER INH PRN (10:08)
[2019-04-21] MEDS ORDERED: IPRATROPIUM/ALBUTEROL SULFATE 3 ML NEB NEB PRN (10:08)
[2019-04-21] MEDS ORDERED: TIOTROPIUM BROMIDE 18 MCG CAPSULE INH SCH (11:00)
[2019-04-21] MEDS: GUAIFENESIN 100 MG/5 ML PO SCH ×2 (11:24→20:17)
[2019-04-21] MEDS: Sucralfate Tab 1 GM TAB PO SCH ×2 (11:24→20:17)
[2019-04-21] MEDS: predniSONE Tab 20 MG TAB PO SCH (20:21)
[2019-04-21] MEDS ORDERED: Simvastatin Tab 10 MG TAB PO SCH (21:00)
[2019-04-21] MEDS ORDERED: Zolpidem Tab 5 MG TAB PO PRN (21:16)
[2019-04-22] MEDS: Lactated Ringers 1,000 ML PRIMARY IV SCH (07:55)
[2019-04-22] MEDS: Meropenem Inj 1 GM in Sodium Chloride 0.9% 100 ML IV SCH (07:56)
[2019-04-22] MEDS: predniSONE Tab 20 MG TAB PO SCH (08:00)
[2019-04-22] MEDS: CARVEDILOL 12.5 MG TABLET PO SCH (08:00)
[2019-04-22] MEDS: Sucralfate Tab 1 GM TAB PO SCH (08:00)
[2019-04-22] MEDS: FLUoxetine 20 MG CAPSULE PO SCH (08:00)
[2019-04-22] MEDS: ASPIRIN EC 81 MG TABLET PO SCH (08:01)
[2019-04-22] MEDS: TAMSULOSIN 0.4 MG CAPSULE PO SCH (08:01)
[2019-04-22] MEDS: CHOLECALCIFEROL 1000 IU TABLET PO SCH (08:01)
[2019-04-22] MEDS: DASATINIB 20 MG PO SCH (08:03)
[2019-04-22] MEDS ORDERED: LISINOPRIL 5 MG TABLET PO SCH (09:00)
[2019-04-22] MEDS: GUAIFENESIN 100 MG/5 ML PO SCH (09:36)
[2019-04-22 09:46] VITALS: O2SAT 93
[2019-04-22] MEDS ORDERED: HEPARIN 500 UNIT/5 ML SYRINGE FOR CENTRAL LINE IVP PRN (09:46)
--- NOTE | 2019-04-22 10:01 | DCSUMMARY ---
Hospitalization Summary Hospital Course: Final Discharge Diagnosis: Current Visit Problems Problem Status Onset Code Pneumonia Acute J18.9 Hypertension Acute I10 Leukemia Acute C95.90 Diagnostic Data, Laboratory Data, and Procedures of Signifigance: CBC and BMP 04/21/19 08:15 04/21/19 08:15 History and Physical pertinent to Admission: This is a 54 years old male with medical history significant for history of ALL currently on oral chemotherapeutic agent, history of GERD, history of COPD, who came into the hospital on the and was diagnosed with pneumonia treated for 2 days and was discharged home on doxycycline. He said he felt better for 2 days only after discharge and then symptoms recurred with the cough and chills and fever and because of that he came back to the hospital he had a CT done in the ER still showed presence of pneumonia and because of continuous symptoms he was admitted. He did receive cefepime and azithromycin. Past Medical History Medical History: 1. ALL, this was diagnosed 6 years ago said he had chemotherapy and apparently was in remission until 2 years ago when he had recurrence and he's been on oral chemotherapeutic agent and according to him seems to be under control. He goes to [place] and have blood tests every 4 weeks. 2. GERD. 3. HTN. 4. reportedly, COPD. 5. Restless leg syndrome. 6. atrial fibrillation Surgical History: 1. Right upper chest port. 2. Status post appendectomy. 3. Pacemaker with AICD per the patient Pertinent Family History: He states his mother gets "blackout spells" Past Social History: , has children that are healthy. Does not smoke tobacco or drink alcohol at this time. Tobacco Use: Former Smoker Course of Hospitalization: Is a very nice 54-year-old gentleman with history of AML L history of COPD comes in with the pneumonia seen on CT scan which is basically unchanged from previous no PE. He was given cefepime and Zithromax patient improved vital signs are stable he is on 90% on room air and I walked him personally around the hallways and he went to 89 for 1 time but stayed at 90 the fry walk a strong when he walks his gait is good and feels back to his normal self and would like to be discharged home. He does have oxygen at home which she will wear. I will discharge him on Augmentin and Zithromax. He will also have prednisone 40 mg daily. On the date of discharge, the patient was examined: Gen.: No acute distress, alert, nontoxic Heart: Regular rate and rhythm, no murmurs, clicks, gallops, or rubs Lungs: Clear to auscultation bilaterally, breathing is nonlabored Abdomen/GI: Normal tones on auscultation, soft, nontender, nondistended Musculoskeletal/extremities: No clubbing, cyanosis, or edema Vitals reviewed and are listed below Vital Signs (24 hrs) 04/21/19 11:00 04/21/19 11:28 04/21/19 11:30 Temperature 98.1 F Pulse Rate Pulse Rate [Pulse Oximeter] 80 Pulse Rate [left hand] 67 72 Respiratory Rate 20 Blood Pressure [Right Arm] 147/76 Pulse Ox 92 Pulse Ox [left hand] 92 92 04/21/19 13:08 04/21/19 13:09 04/21/19 14:58 Temperature Pulse Rate 70 70 Pulse Rate [Pulse Oximeter] Pulse Rate [left hand] 67 Respiratory Rate 16 16 Blood Pressure [Right Arm] Pulse Ox 94 Pulse Ox [left hand] 94 04/21/19 16:10 04/21/19 17:00 04/21/19 18:44 Temperature 98.6 F Pulse Rate Pulse Rate [Pulse Oximeter] 67 Pulse Rate [left hand] 66 70 Respiratory Rate 20 Blood Pressure [Right Arm] 114/73 Pulse Ox 93 Pulse Ox [left hand] 96 91 04/21/19 19:11 04/21/19 21:00 04/21/19 23:00 Temperature 98.5 F Pulse Rate Pulse Rate [Pulse Oximeter] 71 Pulse Rate [left hand] 68 68 Respiratory Rate 20 Blood Pressure [Right Arm] 131/80 Pulse Ox 92 Pulse Ox [left hand] 92 95 04/22/19 00:10 04/22/19 01:00 04/22/19 03:00 Temperature 98.0 F Pulse Rate Pulse Rate [Pulse Oximeter] 68 Pulse Rate [left hand] 65 68 Respiratory Rate 20 Blood Pressure [Right Arm] 139/65 Pulse Ox 94 Pulse Ox [left hand] 93 94 04/22/19 04:55 04/22/19 04:56 04/22/19 05:17 Temperature 98.1 F Pulse Rate Pulse Rate [Pulse Oximeter] 59 L Pulse Rate [left hand] 59 L Respiratory Rate 16 Blood Pressure [Right Arm] 116/59 Pulse Ox 94 94 Pulse Ox [left hand] 94 04/22/19 07:00 04/22/19 07:41 04/22/19 09:00 Temperature 97.5 F Pulse Rate Pulse Rate [Pulse Oximeter] 77 Pulse Rate [left hand] 74 62 Respiratory Rate 20 20 Blood Pressure [Right Arm] 131/91 Pulse Ox 95 Pulse Ox [left hand] 95 93 Assessment and Plan: 1. As per discharge assessments above 2. Disposition: Home 3. Condition on discharge, stable and improved. 4. Diet: regular diet 5. Activities: resume normal activities 6. Follow-Up: 1. PCP Dr. Montoya 2. 7. Medications at the Time of Discharge: Home Medications 3 Medication Instructions Recorded Confirmed aspirin 81 mg tablet,delayed 81 mg PO QDAY #30 tab 10/27/18 04/20/19 release albuterol sulfate HFA 90 2 puff INH Q4-6H PRN #18 g 02/09/19 04/20/19 mcg/actuation aerosol inhaler amlodipine 10 mg tablet 10 mg PO QDAY #90 tab 02/09/19 04/20/19 carvedilol 12.5 mg tablet 12.5 mg PO BID #180 tab 02/09/19 04/20/19 dasatinib 20 mg tablet 20 mg PO QDAY tab 02/09/19 04/20/19 lisinopril 5 mg tablet 5 mg PO QDAY #90 tab 02/09/19 04/20/19 ondansetron 4 mg disintegrating 4 mg PO Q12H #30 tab 02/09/19 04/20/19 tablet fluoxetine 20 mg capsule 60 mg PO QDAY cap 02/28/19 04/20/19 simvastatin 10 mg tablet 10 mg PO QHS tab 02/28/19 04/20/19 cholecalciferol (vitamin D3) 1,000 1,000 unit PO QDAY #30 cap 03/16/19 04/20/19 unit capsule vitamin B complex tablet 1 tab PO QDAY #30 tab 03/16/19 04/20/19 ipratropium-albuterol 0.5 mg-3 3 ml INH Q6-8H PRN #180 ml 03/19/19 04/20/19 mg(2.5 mg base)/3 mL nebulization soln tiotropium bromide 2.5 2 puff INH QDAY #4 g 03/20/19 04/18/19 mcg/actuation mist for inhalation guaifenesin 400 mg tablet 400 mg PO BID 04/18/19 04/20/19 sucralfate 1 gram tablet 1 g PO BID tab 04/18/19 04/20/19 tamsulosin 0.4 mg capsule 0.4 mg PO QDAY cap 04/18/19 04/20/19 tiotropium 2.5 mcg-olodaterol 2.5 4 gm Mist.Inhal#2 Samples 04/18/19 04/18/19 mcg/actuation mist for inhalation Amoxicill/Clav 875/125mg 1 ea PO BID #20 tab 04/22/19 [Augmentin 875/125mg] Azithromycin [Zithromax Tri-Sriram] 500 mg PO DAILY #3 tab 04/22/19 predniSONE Tab [Deltasone Tab] 40 mg PO DAILY #10 tab 04/22/19 8. Time, care, counseling and coordination of care for this discharge is greater than 30 minutes. Exam - Vitals Vital Signs: Vital Signs Temperature 97.5 F Temperature Source Temporal Artery Scan Pulse Rate [Pulse Oximeter] 77 Pulse Rate [left hand] 62 Pulse Rate 70 Respiratory Rate 20 Blood Pressure [Right Arm] 131/91 Blood Pressure 128/67 Pulse Ox [left hand] 93 Pulse Ox 95 Oxygen Flow Rate [left hand] 1 Oxygen Flow Rate 1 Oxygen Delivery Method [left Room Air hand] Oxygen Delivery Method Room Air Height 5 ft 8 in Weight 218 lb 3.2 oz Patient Problems - Patient Problem List (1) Pneumonia Current Visit: Yes Status: Acute Code(s): J18.9 - Pneumonia, unspecified organism Category: Medical (2) Gastroesophageal reflux disease Current Visit: No Status: Chronic Code(s): K21.9 - Gastro-esophageal reflux disease without esophagitis Qualifiers: Esophagitis presence: esophagitis presence not specified Qualified Code(s): K21.9 - Gastro-esophageal reflux disease without esophagitis Category: Medical (3) COPD (chronic obstructive pulmonary disease) Current Visit: No Status: Acute Code(s): J44.9 - Chronic obstructive pulmonary disease, unspecified Category: Medical (4) Hypertension Current Visit: Yes Status: Acute Code(s): I10 - Essential (primary) hypertension Category: Medical
[2019-04-22 11:29] VITALS: BP 161/91; RESP 18; TEMP 97.4
== END 2019-04-22 14:30 | disposition home or self-care (01) | DRG 194 ==
LOC: ER 20:27 → MED/SURG 04-21 00:32
PROVIDERS: ADMIT Internal Medicine; ATTEND Internal Medicine